=== PATIENT | female | born 1945 | race Caucasian/White ===

== ENCOUNTER → 2016-11-13 | Day surgery (SDC) | payer MEDICARE ==
[~2016-11-13] MED LIST: BUPIVACAINE/EPINEPHRINE 0.25% 50 ML VIAL ONE; KETOROLAC TROMETHAMINE 30 MG/ML (IVP) VIAL IV PUSH ONE; ONDANSETRON HCL 4 MG/2 ML VIAL IV PUSH ONE; PROPOFOL 100 MG/10 ML INJ IV ONE; ceFAZolin 2 GM PREMIX 50 ML ONE
--- NOTE | 2016-11-13 15:26 | TN ---
cc: BUDDY ASHFORD M.D. DATE OF SURGERY: 11/13/2016 PREOPERATIVE DIAGNOSIS Diffuse cervical and axillary adenopathy, rule out lymphoma. POSTOPERATIVE DIAGNOSIS Diffuse cervical and axillary adenopathy, rule out lymphoma. PROCEDURE PERFORMED Left axillary lymph node biopsy x2. SURGEON Buddy Ashford. CURRICULUM AND ASSESSMENT COORDINATOR ESTEFANI Velasco. ANESTHESIA General LMA. COMPLICATIONS None. INDICATION FOR PROCEDURE Ms. Kearns is a very pleasant 70-year-old female who noted some swollen nodes in her neck. She underwent imaging. This showed diffuse cervical as well as axillary adenopathy. She was referred for surgical evaluation for consideration of possible lymphoma diagnosis. The patient was seen and evaluated in the office. The risks and benefits of excisional biopsy was discussed with her and she was agreeable. DETAILS OF PROCEDURE The patient was identified, brought to the operating room and placed supine on the operating table. After adequate general anesthesia was achieved with LMA the left axilla was prepped and draped in a standard surgical fashion. 0.25% Marcaine was injected in the skin and subcutaneous tissue in the left axilla. A transverse incision was made. Dissection was carried down through the subcutaneous tissue into the axilla proper. Immediately multiple large purple fleshy nodes were identified. A large node was grasped with an Allis clamp and excised with the electrocautery Bovie. There was a node adjacent to it which was also markedly enlarged. This was also excised with electrocautery Bovie. Once we did this the specimens were sent to pathology using moist saline gauze. The axilla was inspected and there was no bleeding noted. There were multiple visible enlarged nodes that we left in place. The wound was copiously irrigated with normal saline solution, injected with additional local anesthetic. The wound was then closed in two layers using 3-0 and 4-0 Vicryl. Sterile dressings were applied and the patient was awakened and brought to Recovery in stable condition. Please note the ESTEFANI first aid instructor was medically necessary due to the complexity of this procedure and her extensive surgical knowledge. She also has extensive knowledge of my surgical technique. MD JAMIN Self/DEDE /3:05 PM /3:16 PM
== END | disposition home or self-care (01) ==
LOC: ESDC 13:03
PROVIDERS: ATTEND Surgery Trauma Surgery
DX: C85.90 Non-Hodgkin lymphoma, unspecified, unspecified site (principal)
CPT/HCPCS: 01610; 38525; 88184; 88185; 88237; 88264; 88280; 88305; 88377; J0690; J1885; J2405; J3010; 88307